=== PATIENT | female | born 1950 | race Caucasian/White ===

== ENCOUNTER 2018-06-02 16:34 | Inpatient (IN) | payer OTHER ==
[~2018-06-02] VITALS: Ht 160 cm; Wt 90.3 kg
--- NOTE | ~2018-06-02 | PR ---
[place], [place] PROGRESS NOTE [id number] UNIT #: [id number] ROOM: 309 DOCTOR: COOKIE CORDERO MD BIRTHDATE: [birth year] DOS: 06/09/2018 INTERVAL NOTE CHIEF COMPLAINT: "I just don't feel right, I don't want to go home in that situation." SUMMARY OF THE VISIT: The patient was interviewed in the quiet room. She reported that she is very unhappy and is very unhappy with her current living situation, reporting that she does not want her daughter to be living with her any longer. She feels that the stress of the situation would push her into suicidal thoughts once again. She continues to dance around whether she is actively suicidal, but continues to endorse that she is still feeling depressed and overwhelmed. On a positive note, basic activities such as sleep and appetite have improved greatly. She also endorses no side effects from the medication itself. MENTAL STATUS: She is alert and oriented. Mood does still seem to be somewhat depressed and down. She reports ongoing suicidal thoughts without necessarily a plan at this time. There is no monae, hypomania or psychosis. Memory is fully intact. PLAN: I will augment the effectiveness of her antidepressant with the Abilify. This also should decrease her impulsivity and mood lability. We will engage in individual and martin milieu activity. director agricultural services will reach out with the family and see what can be done to help the daughter move out of the current living situation; hopefully, rectifying some of the stress that is confronting the patient. COOKIE CORDERO MD CM:PNTRANS [id number] COOKIE CORDERO MD 06/10/18 0315 interface
--- NOTE | ~2018-06-02 | DS ---
[place], [place] DISCHARGE SUMMARY NAME: BHARAT PABLO [facility] #: [id number] UNIT #: [id number] ROOM: 314 DOCTOR: COOKIE CORDERO MD BIRTHDATE: [birth year] DOS: 06/15/2018 CHIEF COMPLAINT: "I tried to kill myself. I have just been so depressed." HISTORY OF PRESENT ILLNESS: This is a 67-year-old white female who was transferred here from [facility], where she was admitted following a benzodiazepine overdose that was an intentional suicide attempt. The patient reports a lengthy history of depression and does follow with [facility] and has a psychiatrist and a counselor there. She reports that her current medication regimen has been unsuccessful at combating her depression. She endorses multiple neurovegetative symptoms that include poor sleep and appetite, anergia, anhedonia, hopeless, helpless feelings, crying spells, and inability to cope. She continues to endorse suicidal thoughts, but denies a current plan. She is admitted now to the [facility] to rule out organic factors, to stabilize on medication, to engage in individual and martin milieu, returning then to the least restrictive environment when psychiatrically stable. SUMMARY OF HOSPITAL COURSE: The patient was admitted to the unit where her Prozac was discontinued due to ineffectiveness. All benzodiazepines were avoided given her suicide attempt. She was started on Remeron 15 mg at bedtime for the depression and Vistaril 25 mg 3 times a day for the anxiety. Her vitamin D level with screening examinations was subtherapeutic at 27.6, so vitamin D 5000 International Units daily was added. Initially the Remeron made her excessively sedate in the morning, so the dose was increased to 30. This caused her not to sleep, so it was lowered back down to 22.5 as a compromise dose, which seems to be the perfect dose as she slept well without morning somnolence. The patient improved dramatically with this medication. Eventually, she continued to complain of low energy and still some residual depression, so Abilify was added as an augmenting agent, which did seem to give a catalytic boost to her mood and she improved greatly. She voiced positive plans for the future and convincingly denied suicidal thoughts. She voiced a willingness and a readiness to return home. MENTAL STATUS AT DISCHARGE: The patient was alert and oriented. Mood was strongly trending towards euthymia. Affect was more appropriate. There is no monae, hypomania or gross psychosis. Memory was fully intact. FINAL DIAGNOSES: Major depression, recurrent, severe and dysthymic disorder. DISPOSITION: All of her prescriptions have been printed and will be sent with her. At the time of discharge, she was psychiatrically stable and there were no acute medical issues. [place], [place] DISCHARGE SUMMARY NAME: BHARAT PABLO UNIT #: [id number] ROOM: [facility] DOCTOR: COOKIE CORDERO MD BIRTHDATE: [birth year] COOKIE CORDERO MD CM:SHEREE [id number] COOKIE CORDERO MD 06/15/18 1704 interface
--- NOTE | ~2018-06-02 | CON ---
[place], [place] REPORT OF CONSULTATION [id number] UN[facility] #: [id number] ROOM: 314 DOCTOR: ISA PHD SHELDON BIRTHDATE: [birth year] DOS: 06/10/2018 HISTORY OF PRESENT ILLNESS: The patient is a 67-year-old female referred by Dr. Hester for counseling. She is presently on the [facility] at [facility]. She has been twice and has 3 children, 3 of her romantic partners have . She lives with her daughter and her 2 grandchildren. She denied alcohol, tobacco and illegal drug use. 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 PAST MEDICAL HISTORY: Hyperlipidemia, hypertension, coronary artery disease, , major depressive disorder, recurrent. MEDICATIONS: Remeron, Vistaril, Abilify, Imodium, Precose, Plavix, aspirin, Lipitor, Glucophage, Mirapex, Ditropan, Cozaar, Flonase, Cardizem, vitamin D, Lasix, Lantus, Humalog, Geodon. PHYSICAL EXAMINATION: The patient was sitting comfortably, in no apparent distress. She was awake, alert and oriented to person, place and time. Eye contact and social skills were appropriate. She was pleasant and cooperative with evaluation. Mood was depressed and affect was restricted in range. She denied current suicidal ideation, plan and intent. She denied homicidal ideation. She states that her mood has improved since her admission to the Behavioral Health Unit. Speech was within normal limits with respect to rhythm, rate, volume and tone. Expressive and receptive language appeared within normal limits. Thought process was linear and goal directed. There was no evidence of hallucinations or delusions. Insight and judgment appeared fair. Discussed the patient's relationship with her daughter, events leading up to her hospitalization and fears about driving and being in a vehicle. Utilized CBT and supportive therapy intervention. The patient appears to benefit. She follows up with [facility]. DIAGNOSES: 1. Major depressive disorder, recurrent, severe. 2. Unspecified anxiety disorder. RECOMMENDATIONS: I will continue to follow the patient while on the unit to address her symptoms of depression and anxiety. Thank you very much for this consult. [place], [place] REPORT OF CONSULTATION NAME: BHARAT PABLO [facility] UNIT #: [id number] ROOM: 314 DOCTOR: ISA, PHD SHELDON BIRTHDATE: [birth year] Abbie Bright, PhD CM:CONSTR:REPORT OF CONSULTATION 1600 06/15/18 0754 interface
--- NOTE | ~2018-06-02 | PR ---
[place], [place] PROGRESS NOTE [id number] UN[facility] #: [id number] ROOM: 309 DOCTOR: COOKIE CORDERO MD BIRTHDATE: [birth year] DOS: 06/10/2018 INTERVAL NOTE CHIEF COMPLAINT: "Oh yeah I get anxiety all the time." SUMMARY OF THE VISIT: The patient was interviewed as she was getting ready in her room. She sat at the edge of her bed and engaged in conversation. She reported to me that she is sleeping almost too well and eating too well with the current medication regimen. She also notes ongoing anxiety issues throughout the day. Anxiety is made worse when she is out in social situations and has been somewhat ongoing through most of her life. MENTAL STATUS: She is alert and oriented. Mood does still seem to be depressed, but trending toward improvement. Affect is more appropriate. There is no monae or hypomania. There are no gross psychotic symptoms. Memory for the most part is intact. PLAN: I will increase her Vistaril from 25 mg 3 times a day to 50 mg 3 times a day to decrease her anxiety. I will also increase her Remeron from 15 to 30 mg a day to see if we can mute some of the somnolence and also decrease her appetite. I will consult Dr. Abbie Bright to see if she can help with anxiety control perhaps with systematic desensitization, will engage in individual and martin milieu activity, returning to the least restrictive environment when psychiatrically stable. COOKIE CORDERO MD CM:PNTRANS [phone] COOKIE CORDERO MD 06/11/18 0706 interface
--- NOTE | ~2018-06-02 | PR ---
[place], [place] PROGRESS NOTE [id number] UN[facility] #: [id number] ROOM: 314 DOCTOR: KADEN LEDESMA CNP BIRTHDATE: [birth year] DOS: 06/13/2018 CHIEF COMPLAINT: "I am doing well." SUMMARY OF THE VISIT: The patient was interviewed as we walked in the hallway. She engaged readily in conversation with me. She reports that she feels a little off balance at times; however, she feels that her mood has improved. She is sleeping okay. Her appetite has been okay. She is able to perform her own ADLs. Staff reports that the patient has had no behaviors and has been pleasant and cooperative. MENTAL STATUS EXAMINATION: The patient was alert and oriented to person, place and time. She was pleasant and cooperative with me. No monae or hypomania noted. No delusions or paranoia noted. No auditory or visual hallucinations noted. No psychotic symptoms. The patient's mood was trending towards euthymia. Affect was congruent with mood. PLAN: We will continue the patient's medications as prescribed. We will continue to monitor the patient for side effects. Encourage the patient to engage in individual and martin milieu activity. We will continue fall and safety precautions. We will plan to return the patient to the least restrictive environment once considered psychiatrically stable. Kaden Ledesma CNP CM:PNTRANS [id number] KADEN LEDESMA CNP 06/13/18 2344 interface
--- NOTE | ~2018-06-02 | PR ---
[place], [place] PROGRESS NOTE [id number] UNIT #: [id number] ROOM: 309 DOCTOR: COOKIE CORDERO MD BIRTHDATE: [birth year] DOS: 06/08/2018 INTERVAL NOTE CHIEF COMPLAINT: "I feel better, but I'm not certain if I am ready to leave yet." SUMMARY OF THE VISIT: The patient was interviewed as she was sitting alone, eating breakfast. She engaged readily in conversation. She reports that she is sleeping well, eating much better, much more positive about life. She convincingly denies suicidal thoughts, homicidal thoughts. She is fearful about leaving; however, and is scheduled to have a family meeting today and is concerned how that will go. MENTAL STATUS: The patient is alert and oriented. Mood does seem to be strongly trending towards euthymia. Affect is more appropriate. There is no monae, hypomania or gross psychosis. Short-term memory, long-term memory and intermediate memory are intact. PLAN: I will maintain her current psychotropic regimen, engage in individual and martin milieu activity, have the family session and then determine discharge plans thereafter. COOKIE CORDERO MD CM:PNTRANS 0 COOKIE CORDERO MD 06/08/18 0847 interface
--- NOTE | ~2018-06-02 | PR ---
[place], [place] PROGRESS NOTE NAME: [facility] [id number] UNIT #: [id number] ROOM: 309 DOCTOR: COOKIE CORDERO MD BIRTHDATE: [birth year] DOS: 06/12/2018 CHIEF COMPLAINT: "I didn't sleep as well last night as I did the night before." SUMMARY OF THE VISIT: The patient was interviewed as she was finishing her breakfast. She was fairly bright and pleasant. She did engage easily in conversation with me and even joked a little. She does report that she is feeling somewhat better, but does also note that she is lightheaded, especially when standing up quickly. I did discuss with her the need to take it slow with these types of movements and to make certain that she is pushing fluids. She notes no other side effects. MENTAL STATUS: She is alert and oriented. Mood does still seem to be depressed, but trending towards euthymia. Affect is more appropriate. There is no monae or hypomania. There are no gross psychotic symptoms. Memory for the most part is intact. PLAN: Yesterday, I increased her Remeron from 15 to 30 mg at bedtime, which may be too much and I have lost some of the sedative properties. I will go ahead then and split the difference lowering the Remeron to 22.5 mg at bedtime and continue to support and monitor. We will engage in individual and martin milieu activity, returning her then to the least restrictive environment when psychiatrically stable. COOKIE CORDERO MD CM:PNTRANS [id number] COOKIE CORDERO MD 06/12/18 1503 interface
--- NOTE | ~2018-06-02 | PR ---
[place], [place] PROGRESS NOTE [id number] UN[facility] #: [id number] ROOM: 309 DOCTOR: COOKIE CORDERO MD BIRTHDATE: [birth year] DOS: 06/11/2018 INTERVAL NOTE CHIEF COMPLAINT: "I slept okay. I feel good this morning." SUMMARY OF THE VISIT: The patient was interviewed as she was eating her breakfast in the dining area. She started and engaged readily in conversation. She did report that she woke up once again in the middle of the night, but did fall back to sleep pretty well. She reports tolerating the medication changes well and is anxious to see how the day progresses today to see if she notices any differences. She denies any side effects this morning. MENTAL STATUS: She remains alert and oriented. Mood does seem to be trending towards euthymia. Affect is more appropriate. There is no monae or hypomania. There are no auditory or visual hallucinations. No delusions, no paranoia. Memory for the most part is intact. PLAN: I will maintain her current psychotropic regimen, engage in individual and martin milieu activity, returning then to the least restrictive environment when psychiatrically stable. COOKIE CORDERO MD CM:PNTRANS [phone] [id number] COOIKE CORDERO MD 06/11/182204 interface
--- NOTE | ~2018-06-02 | WRIGHTHP ---
[place], [place] PATIENT HISTORY AND PHYSICAL EXAM NAME: BHARAT PABLO [facility] #: [id number] UNIT #: [id number] ROOM: 309 DOCTOR: COOKIE CORDERO MD BIRTHDATE: [birth year] DOS: 06/05/2018 INITIAL PSYCHIATRIC EVALUATION CHIEF COMPLAINT: "I tried to kill myself. I have just been so depressed." HISTORY OF PRESENT ILLNESS: This is a 67-year-old white female who was transferred here from [facility] where she was admitted following a benzodiazepine overdose that was an intentional suicidal attempt. The patient reports a lengthy history of depression and does follow with [facility] and sees a psychiatrist as well as a counselor there. She reports that her current medication regimen has been unsuccessful at combating her depression. She notes multiple neurovegetative symptoms that include poor sleep and appetite, anergia, anhedonia, hopeless and helpless feelings, crying spells, and inability to cope. She does continue to endorse continued suicidal thoughts, but denies a current plan. She is admitted now to rule out any organic factors to attempt to stabilize on medication, to engage in individual and martin milieu activity, returning to the least restrictive environment when psychiatrically stable. PAST MEDICAL HISTORY: Remarkable for hyperlipidemia, hypertension, coronary artery disease, and major depression, recurrent. ALLERGIES: She has no known allergies. SOCIAL HISTORY: The patient is not a cigarette smoker, drinker or illicit drug user. MENTAL STATUS: She is alert and oriented. Mood does seem to be extremely depressed. She is rather flat, blunted, and constricted. She endorses multiple neurovegetative symptoms and also endorses positive fleeting suicidal thoughts without a plan. There is no hypomania or monae. There are no auditory or visual hallucinations. No delusions or paranoia are present. Memory for the most part is fully intact. DIAGNOSES: Major depression, recurrent, severe and dysthymic disorder. PLAN: I have discontinued her Prozac, which was prescribed at 40 mg a day in lieu of Remeron 15 mg at bedtime. I will avoid the use of benzodiazepines given the fact that she did attempt to overdose on them and they are lethal in overdose. Instead, I will use Vistaril 25 mg t.i.d. straight to decrease her anxiety and also p.r.n. should this not be strong enough. Routine screening examinations reveal a vitamin D level that is subtherapeutic at 27.6. I will treat with vitamin D 5000 international units daily. Engage in individual and martin milieu activity, returning to the least restrictive environment when psychiatrically stable. [place], [place] PATIENT HISTORY AND PHYSICAL EXAM NAME: BHARAT PABLO UNIT #: [id number] ROOM: 309 DOCTOR: COOKIE CORDERO MD BIRTHDATE: [birth year] COOKIE CORDERO MD CM:HISPHYS:PATIENT HISTORY AND PHYSICAL EXAMINATION 8 COOKIE CORDERO MD 06/05/18 0939 interface
--- NOTE | ~2018-06-02 | PR ---
[place], [place] PROGRESS NOTE [id number] #: [id number] ROOM: 309 DOCTOR: PHD SHELDON BRIGHT BIRTHDATE: [birth year] DOS: 06/11/2018 The patient reports improved mood. Mood was depressed and affect was restricted. She firmly denied suicidal and homicidal ideation. Discussed her goals and plans following discharge. Utilized CBT and supportive therapy interventions. The patient appeared to benefit. We will continue to follow. Abbie Bright, CM:KOFFI [phone] PHD SHELDON BRIGHT 06/12/18 0025 interface
--- NOTE | ~2018-06-02 | PR ---
[place], [place] PROGRESS NOTE [facility] [id number] UN[facility] #: [id number] ROOM: 314 DOCTOR: KADEN LEDESMA CNP BIRTHDATE: [birth year] DOS: 06/14/2018 CHIEF COMPLAINT: "That's me." SUMMARY OF VISIT: The patient was interviewed as she sat in the dining room, participating. She had been participating in martin milieu activity. The patient engaged readily in conversation with me. She reports that she is sleeping fine. Her appetite has been good. She feels that her mood is improved, does not feel anxious. Staff reports that the patient has shown improvement. No behaviors. MENTAL STATUS EXAMINATION: She is alert and oriented to person, place and time. She is pleasant and cooperative with me. No monae or hypomania. No delusions or paranoia. No psychotic symptoms. No auditory or visual hallucinations. Her mood continues to improve trending towards euthymia. Her affect is congruent with her mood. PLAN: I will continue the patient's medications as prescribed as she seems to be tolerating them without any side effects. We will continue to engage the patient in individual and martin milieu activity. Continue fall and safety precautions. Plan to return the patient to the least restrictive environment when psychiatrically stable, which could be as possible as early as tomorrow. Kaden Ledesma CNP CM:PNTRANS [phone] KADEN LEDESMA CNP 06/15/18 0009 interface
[2018-06-02] MEDS ORDERED: LIPITOR80 MG PO (18:39)
[2018-06-02] MEDS ORDERED: MIRAPEX0.125 M1 PO (18:40)
[2018-06-02] MEDS ORDERED: DITROPAN XL5 MG PO (18:41)
[2018-06-02] MEDS ORDERED: COZAAR50 M1 PO (18:42)
[2018-06-02] MEDS ORDERED: CARDIZEM30 MG PO (18:44)
[2018-06-02] MEDS ORDERED: LASIX20 MG PO (18:45)
[2018-06-02] MEDS ORDERED: PROZAC40 M1 PO (18:46)
[2018-06-02] MEDS ORDERED: LEVEMIR FL100 UNIT/1 SQ (18:46)
[2018-06-02] MEDS ORDERED: Oscal,Oyster S500 MG PO (18:48)
[2018-06-04 17:31] VITALS: BP 133/69
[2018-06-04] MEDS ORDERED: FLONASE ALLERG9.9 ML NAS (18:45)
[2018-06-04] MEDS ORDERED: PRECOSE25 MG PO (18:47)
[2018-06-04] MEDS ORDERED: GLUCOPHAGE1000 MG PO (18:48)
[2018-06-04] MEDS ORDERED: PLAVIX75 M1 PO (18:50)
[2018-06-04] MEDS ORDERED: ASPIR LOW81 MG PO (18:51)
[2018-06-04 20:28] VITALS: BP 117/55
[2018-06-04 20:38] VITALS: BP 133/69
[2018-06-05 07:08] LABS: BASO # 0.1 10*3/uL (0.0-0.1); BASO % 0.9 % (0.0-1.0); EOS # 0.4 10*3/uL (0.0-0.4); EOS % 5.4 % (1.0-4.0); HEMATOCRIT 30.6 % (37.0-47.0); HEMOGLOBIN 9.6 g/dl (12.0-16.0); LYMPH # 1.9 10*3/uL (1.3-4.4); LYMPH % 27.7 % (27.0-41.0); MEAN CORPUSCULAR HGB 28.2 pg (27.0-31.0); MEAN CORPUSCULAR HGB CONC 31.4 g/dl (33.0-37.0); MEAN PLATELET VOLUME 9.9 fl (9.6-12.3); MONO # 0.6 10*3/uL (0.1-1.0); MONO % 8.8 % (3.0-9.0); NEUT # 3.8 10*3/uL (2.3-7.9); NEUT % 56.5 % (47.0-73.0); PLATELET COUNT AUTOMATED 322 10*3/uL (130-400); RED CELL DISTRI WIDTH 14.5 % (0-14.5); WHITE BLOOD COUNT 6.7 10*3/uL (4.8-10.8)
[2018-06-05 07:36] LABS: ALBUMIN 2.3 gm/dl (3.1-4.5); ALKALINE PHOSPHATASE 119 U/L (45-117); BUN 26 mg/dl (7-24); CHLORIDE 104 mmol/L (98-107); CHOLESTEROL 131 mg/dL (<200); HDL CHOLESTEROL 26 mg/dl (40-60); LDL CHOLESTEROL 80 mg/dL (9-159); POTASSIUM 3.5 mmol/L (3.5-5.1); SGOT/AST 9 IU/L (3-35); SGPT/ALT 14 U/L (12-78); SODIUM 144 mmol/L (136-145); TOTAL PROTEIN 6.2 gm/dL (6.4-8.2); TRIGLYCERIDES 126 mg/dl (<150); VLDL CHOLESTEROL 25 mg/dL (6-40)
[2018-06-05 07:44] LABS: THYROID STIM HORMONE (HS) 0.762 uIU/ml (0.358-4.75)
[2018-06-05 08:08] VITALS: BP 131/67
[2018-06-05 08:17] LABS: VITAMIN D, 25-HYDROXY 27.6 ng/mL (30-100)
[2018-06-05 19:10] VITALS: BP 120/62
[2018-06-06 08:02] VITALS: BP 124/70
[2018-06-06 19:44] VITALS: BP 116/68
[2018-06-07 08:10] VITALS: BP 120/62
[2018-06-07 19:48] VITALS: BP 118/68
[2018-06-07 22:00] LABS: BILIRUBIN NEGATIVE (NEGATIVE); BLOOD NEGATIVE (NEGATIVE); CLARITY CLEAR (CLEAR); COLOR YELLOW (YELLOW); GLUCOSE NEGATIVE (NEGATIVE); KETONE NEGATIVE (NEGATIVE); LEUKO ESTERASE TRACE (NEGATIVE); NITRITE NEGATIVE (NEGATIVE); SPECIFIC GRAVITY <= 1.005 (1.005-1.030); UROBILINOGEN 0.2 E.U./dl (0.2-1.0)
[2018-06-07 22:10] LABS: BACTERIA TRACE
[2018-06-08 08:01] VITALS: BP 138/85
[2018-06-08 21:29] VITALS: BP 147/73
[2018-06-09 07:52] VITALS: BP 129/76
[2018-06-09 20:27] VITALS: BP 120/65; BP 121/59
[2018-06-10 07:42] VITALS: BP 115/63
[2018-06-10 20:00] VITALS: BP 116/79
[2018-06-11 08:04] VITALS: BP 131/67
[2018-06-11 19:48] VITALS: BP 108/64
[2018-06-12 07:34] VITALS: BP 109/63
[2018-06-12 19:37] VITALS: BP 112/67
[2018-06-13 08:02] VITALS: BP 152/79
[2018-06-13 20:06] VITALS: BP 109/67
[2018-06-14 08:09] VITALS: BP 115/65
[2018-06-14 20:37] VITALS: BP 115/64
[2018-06-15 07:21] VITALS: BP 119/61
[2018-06-15] MEDS ORDERED: HYDROXYZINE PAM25 M1 PO (10:48)
[2018-06-15] MEDS ORDERED: VITAMIN D5000 UNI1 PO (10:48)
[2018-06-15] MEDS ORDERED: ARIPIPRAZOLE10 MG PO (10:48)
[2018-06-15] MEDS ORDERED: MIRTAZAPINE45 MG PO (10:48)
== END 2018-06-15 16:00 | disposition home health service (06) | DRG 885 ==
LOC: 3N 16:34
PROVIDERS: ADMIT Psychiatry & Neurology Psychiatry
DX: F33.2 Major depressive disorder, recurrent severe without psychotic features (principal); R45.851 Suicidal ideations; I25.810 Atherosclerosis of coronary artery bypass graft(s) without angina pectoris; F34.1 Dysthymic disorder; F41.9 Anxiety disorder, unspecified; N31.9 Neuromuscular dysfunction of bladder, unspecified; R32 Unspecified urinary incontinence; K58.9 Irritable bowel syndrome, unspecified; G25.81 Restless legs syndrome; K21.9 Gastro-esophageal reflux disease without esophagitis; G47.33 Obstructive sleep apnea (adult) (pediatric); E66.01 Morbid (severe) obesity due to excess calories; E78.5 Hyperlipidemia, unspecified; I10 Essential (primary) hypertension; E11.42 Type 2 diabetes mellitus with diabetic polyneuropathy; Z79.4 Long term (current) use of insulin; Z90.49 Acquired absence of other specified parts of digestive tract; Z95.1 Presence of aortocoronary bypass graft; Z83.3 Family history of diabetes mellitus; Z82.49 Family history of ischemic heart disease and other diseases of the circulatory system; Z79.899 Other long term (current) drug therapy; Z79.82 Long term (current) use of aspirin; Z79.02 Long term (current) use of antithrombotics/antiplatelets; Z68.35 Body mass index [BMI] 35.0-35.9, adult